=== PATIENT | female | born 1975 | race Two or more races ===

== ENCOUNTER 2023-11-01 06:00 | Day surgery (SDC) | payer OTHER ==
[2023-10-30 15:12] LABS: Urine Bacteria None Seen /hpf (None Seen)
[2023-10-30 15:20] LABS: Basophils # (auto) 0 10 ^3/uL (0-0.2); Basophils % (auto) 0.5 % (0.0-2.0); Eosinophils # (auto) 0.1 10 ^3/uL (0-0.8); Eosinophils % (auto) 1.2 % (0.0-7.0); Hematocrit 39.4 % (36.0-46.0); Hemoglobin 13.3 g/dL (12.2-16.2); Lymphocytes # (auto) 3.2 10 ^3/uL (0.4-5.4); Lymphocytes % (auto) 42.2 % (10.0-50.0); Mean Corpuscular Hemoglobin 28.8 pg (28.0-32.0); Mean Corpuscular Hgb Conc. 33.8 g/dL (32.0-36.0); Mean Corpuscular Volume 85.2 fL (80.0-100.0); Monocytes # (auto) 0.5 10 ^3/uL (0-1.3); Monocytes % (auto) 6.8 % (0.0-12.0); Neutrophils # (auto) 3.7 10 ^3/uL (1.6-8.6); Neutrophils % (auto) 49.3 % (37.0-80.0); Nucleated Red Blood Cells % 0.1 %; Platelet Count (auto) 290 10^3/uL (140-450); Red Blood Cells 4.62 10^6/uL (4.0-5.20); White Blood Cell 7.6 10^3/uL (4.4-10.8)
[2023-10-30 15:40] LABS: INR 0.96 (0.9-1.15); Prothrombin Time 10.2 sec (9.3-11.8)
[2023-10-30 15:42] LABS: Alanine Aminotransferase 53 U/L (7-40); Alkaline Phosphatase 184 U/L (46-116); Anion Gap 4 (5-15); Aspartate Aminotransferase 47 U/L (13-40); BUN/Creatinine Ratio 8.3 (10.0-20.0); Blood Urea Nitrogen 7 mg/dL (9-23); Calcium 9.9 mg/dL (8.7-10.4); Carbon Dioxide 31 mmol/L (20-30); Chloride 104 mmol/L (98-107); Glucose 78 mg/dL (74-106); Sodium 139 mmol/L (136-145)
[2023-10-30 15:43] LABS: Albumin 4.5 g/dL (3.2-4.8); Bilirubin, Total 0.6 mg/dL (0.2-1.0); Total Protein 8.1 g/dL (5.7-8.2)
[2023-10-30 15:45] LABS: Urine Blood Negative /uL (Negative); Urine Clarity Clear (Clear); Urine Color Light-Yellow (Yellow); Urine Protein, UAD Negative (Negative); Urine Specific Gravity 1.006 (1.001-1.035); Urine Urobilinogen Normal (Negative); Urine WBC <1 /hpf (0 - 5)
[~2023-11-01] VITALS: Ht 165.1 cm; Wt 140.6 kg
[~2023-11-01 06:00] MED LIST: ALBUAER3 IN; ALPR1TAB7 PO; AMLO1TAB23 PO; ATOR10TA52 PO; BUPR-239 PO; BUSP15TA60 PO; CETI10TA2 PO; HYDR50TA69 PO; METO25TA5 PO; MODA200T73 PO; MONT-8 OR; MULT-1018 OR; SERT-160 PO; TRIA37.586 PO
[2023-11-01] MEDS ORDERED: GLYCOPYRROLATE 0.2 MG/ML 1ML VIAL ONE (06:50)
[2023-11-01] MEDS ORDERED: DexAMETHasone SOD PHOS 10MG/1ML VIAL INJ ONE (06:50)
[2023-11-01] MEDS ORDERED: LIDOCAINE 1% INJ PF 5ML AMP ONE (06:50)
[2023-11-01] MEDS ORDERED: ONDANSETRON HCL 4 MG/2 ML VIAL ONE (06:50)
[2023-11-01] MEDS ORDERED: KETOROLAC TROMETH 30 MG/ML 1ML VIAL ONE (06:50)
[2023-11-01] MEDS ORDERED: PROPOFOL 10 MG/ML 20 ML IV ONE ×3 (06:50→08:35)
[2023-11-01] MEDS ORDERED: EPINEPHrine HCL 1 MG/1 ML AMP ONE (06:55)
[2023-11-01] MEDS ORDERED: ACETAMINOPHEN IV 1000 MG/100ML (10MG/ML) IV ONE (07:00)
[2023-11-01] MEDS ORDERED: CELECOXIB 100 MG CAP PO ONE (07:00)
[2023-11-01] MEDS ORDERED: GABAPENTIN 400 MG CAP PO ONE (07:00)
[2023-11-01] MEDS ORDERED: ROPIVACAINE 0.5% (5MG/ML) 20ML AMPULE IJ ONE (07:06)
[2023-11-01] MEDS ORDERED: MIDAZOLAM HCL 2MG/2ML 2ml VIAL (1mg/ml) ONE (07:19)
[2023-11-01] MEDS ORDERED: KETAMINE 50mg/ML 1ml syringe ONE (07:35)
[2023-11-01] MEDS: ceFAZolin 2 GM/D5W50ml 50 ML IV ONE (07:41)
[2023-11-01] MEDS ORDERED: ceFAZolin 1GM VL ONE (07:47)
[2023-11-01 08:58] VITALS: PULSE 82; RESP 9; TEMP 97.9; O2SAT 96
[2023-11-01] MEDS ORDERED: HYDROmorphone HCL 2 MG/ML VL/or syr IV PRN (09:15)
[2023-11-01] MEDS ORDERED: hydrALAZINE HCL 20 MG/ML VL IV PRN (09:15)
[2023-11-01] MEDS ORDERED: ONDANSETRON HCL 4 MG/2 ML VIAL IV PRN (09:15)
[2023-11-01] MEDS ORDERED: NALOXONE HCL 0.4 MG/ML VIAL IV PRN (09:15)
[2023-11-01] MEDS ORDERED: fentaNYL CITRATE 100 MCG/2 ML VL IV PRN (09:15)
[2023-11-01] MEDS ORDERED: ePHEDrine SULFATE 50 MG/ML AMP IV PRN (09:15)
[2023-11-01] MEDS ORDERED: FLUMAZENIL 0.1 MG/ML INJ 10ML MDV IV PRN (09:15)
[2023-11-01] MEDS ORDERED: oxyCODONE HCL 5MG TAB PO PRN (09:15)
[2023-11-01 09:43] VITALS: BP 125/70; PULSE 68; RESP 15; O2SAT 99
== END 2023-11-01 10:20 | disposition home or self-care (01) ==
LOC: SUR 06:00 → EDBD 07:00 → SUR 10:20
PROVIDERS: ATTEND Orthopaedic Surgery
DX: G56.01 Carpal tunnel syndrome, right upper limb (principal); M77.11 Lateral epicondylitis, right elbow; I10 Essential (primary) hypertension; E78.00 Pure hypercholesterolemia, unspecified; E11.9 Type 2 diabetes mellitus without complications; J45.909 Unspecified asthma, uncomplicated; G47.30 Sleep apnea, unspecified; E66.01 Morbid (severe) obesity due to excess calories; G89.29 Other chronic pain; F32.A Depression, unspecified; K21.9 Gastro-esophageal reflux disease without esophagitis; F41.9 Anxiety disorder, unspecified; Z79.899 Other long term (current) drug therapy; Z98.891 History of uterine scar from previous surgery; Z68.43 Body mass index [BMI] 50.0-59.9, adult; Z98.890 Other specified postprocedural states; Z88.0 Allergy status to penicillin; Z88.1 Allergy status to other antibiotic agents; Z88.6 Allergy status to analgesic agent; Z88.8 Allergy status to other drugs, medicaments and biological substances
CPT/HCPCS: 24359; 36415; 64721; 80053; 81001; 81025; 82962; 84702; 85025; 85610; 85730; C1713; J0171; J0690; J1100; J1885; J2250; J2405; J2704; J2795; J0131